=== PATIENT | female | born 1970 ===

== ENCOUNTER 2024-09-26 10:54 | Outpatient (AMB) | payer MEDICAID, SELFPAY ==
--- NOTE | 2024-09-26 11:15 | MHC.OFFVIS ---
Intake Visit Reasons: urinary incontinence Intake Note: New Patient presents for initial visit for urinary incontinence Urology Medications: none Blood Thinner: none PVR: 0ml's Manager Exchange Required: Yes Manager Exchange Name: [id number] Accompanied by: Unknown Allergies No Known Allergies Allergy (Verified 09/26/24 11:35) Medication List - Last Reconciled 09/26/24 by JOSHUA Weiner lisinopril 10 mg PO DAILY magnesium oxide 400 mg PO DAILY HPI Comments Details: Wendy is a very pleasant 53-year-old French-speaking female patient of Dr. Gregorio was accompanied by her stepdaughter Teressa at today's office visit. She has PMH of plantar fasciitis, and depression. She presents to the office today as a new patient for mixed urinary incontinence. In discussion with the patient and her stepdaughter who provides much of today's history as patient is vague throughout today's assessment she reports noting episodes of mixed urinary incontinence throughout the day. She reports utilizing approximately 2-4 Judi pads per day. She denies nocturia, hematuria, dysuria, foul smelling urine, changes to urinary stream, flank pain, fever, and or chills. We discussed at length potential causes of mixed urinary incontinence as well as further treatment options and risks and benefits of these treatment options. In office urinalysis results reviewed with the patient today. PVR 0 mL. She reports having trialed oxybutynin with her PCP and felt this was somewhat helpful however experienced dry mouth and constipation therefore she stopped taking the medication. We discussed obtaining imaging for further assessment evaluation as well as potential near future in office cystoscopy and or urodynamics if symptoms persist and/or worsen. [facility] Medical History Plantar fasciitis History of mammogram Positive QuantiFERON-TB Gold test Positive hepatitis C antibody test Major depressive disorder RUQ abdominal pain Review of Systems Const All systems reviewed & are unremarkable except as noted in HPI and below Physical Exam Const General: cooperative, healthy appearing, comfortable, no acute distress, well developed, alert and awake Orientation/consciousness: oriented to person HEENT Head: Yes normal to inspection, Yes normocephalic and Yes atraumatic Ears: hearing grossly normal bilaterally Eyes General: appearance normal, both eyes and all related structures Neck Neck: Yes normal visual inspection and Yes trachea midline Chest Chest palpation & inspection: normal inspection of the chest Resp Effort & Inspection: normal respiratory effort and able to speak in complete sentences Cardio Rate: regular rate GI Inspection: Yes normal to inspection General: Yes no CVA tenderness Back/Spine/Pelvis Back: no CVA tenderness Skin General skin exam: no rashes or lesions noted Neuro General: oriented to person Extrem General: Yes normal to inspection Psych Appearance: grossly normal and well kempt Mental Status: other Speech and movement: Normal speech and movement present, Clear speech present and Slowed speech present (Psych) Affect: normal affect Attitude: cooperative Insight: Limited insight present (Psych) Judgement: Limited judgement present (Psych) Office Procedures Post Void Residual Post Residual Void Post Void Residual (PVR): 0 [id number] Void Residual by ultrasound Results AMB Urinalysis, Automated UA Leukoctes 0 Ezequiel/uL Last Edit by [employer] on 09/26/24 11:28 UA Nitrite Last Edit by [employer] on 09/26/24 11:28 UA Urobilinogen 0.2 mg/dL Last Edit by [employer] on 09/26/24 11:28 UA Protein 15 mg/dL Last Edit by [employer] on 09/26/24 11:28 UA pH 6.0 Last Edit by [employer] on 09/26/24 11:28 UA Blood 10 Danny/uL Last Edit by [employer] on 09/26/24 11:28 UA Specific Morris 1.020 Last Edit by [employer] on 09/26/24 11:28 UA Ketone Last Edit by [employer] on 09/26/24 11:28 UA Bilirubin 0 mg/dL Last Edit by [employer] on 09/26/24 11:28 UA Glucose 0 mg/dL Last Edit by [employer] on 09/26/24 11:28 Results Reviewed Results Reviewed: Laboratory Last Values Urine pH (Auto) 6.0 09/26/24 11:27 Specific Morris (Auto) 1.020 09/26/24 11:27 Urine Protein (Auto) 15 mg/dL 09/26/24 11:27 Glucose (UA)(Auto) 0 mg/dL 09/26/24 11:27 Urine Blood (Auto) 10 Danny/uL 09/26/24 11:27 Urine Bilirubin (Auto) 0 mg/dL 09/26/24 11:27 Urine Urobilinogen (Auto) 0.2 mg/dL 09/26/24 11:27 Leukocyte Esterase (Auto) 0 Ezequiel/uL 09/26/24 11:27 Assessment & Plan Assessment & Plan (1) Urinary incontinence, mixed: Code(s): N39.46 - Mixed incontinence Category: Medical Plan In office urinalysis results reviewed with the patient today; as noted above. PVR 0 mL. We discussed at length potential causes of mixed urinary incontinence as well as further treatment options and risks and benefits of these treatment options. Start Myrbetriq as discussed and prescribed. Will obtain retroperitoneal ultrasound for further assessment evaluation. We discussed potential near future in office cystoscopy and or urodynamics if symptoms persist and/or worsen. We discussed importance of timed/scheduled voiding given question of memory impairment Follow-up in 1-3 months with PVR and imaging to be completed prior; or sooner with any issues, concerns, and or questions. Orders: Orders AMB Urinalysis Automated Today Z13.9 - Encounter for screening, unspecified AMB Post Void Residual by ultrasound Today N39.41 - Urge incontinence US retroperitoneal comp Today N39.46 - Mixed incontinence Medications: New mirabegron ER (Myrbetriq) 25 mg PO DAILY 30 days 30 tabs 3RF N30.10 - Interstitial cystitis (chronic) without hematuria, N32.81 - Overactive bladder, R35.1 - Nocturia, R39.15 - Urgency of urination Patient Instructions: The patient had an opportunity to ask questions regarding the treatment plan. All questions were answered. Physical exam, labs, and imaging were discussed and reviewed in detail. As well as risks, benefits, and discussion of treatment choices. No major barriers to understanding were identified. The patient expressed understanding and agreement with the above treatment plan. The patient was made aware they should contact our office by phone for worsening of their current condition, the appearance of new symptoms, or with any questions or concerns. Compliance is encouraged with any medications and follow up testing that is ordered. It is a privilege to be allowed the opportunity to participate in? your urological care.? Again, if you have any questions or concerns If you have any questions or concerns please do not hesitate to contact me. The office is [phone]. This note is constructed using voice recognition software. While every effort has been made to ensure accuracy produce laborer errors may have been included. Yours sincerely, LA NENA Weiner-MACKENZIE Coding Level of Care Code New Pt Level 4 (77065) Diagnoses Urinary incontinence, mixed N39.46 CPT Codes Post Residual Void - PVR CPT Code: 18815-Rjtv Void Residual by ultrasound ([id number])
--- OUTSIDE RECORDS SUMMARY | 2024-09-26 13:20 | XMS_ITS | Clinical Summary ---
Author Organization [facility] Address [address] [place] [address] Care Team Providers Care House Worker Name Role Phone Ashely Brown PA-C Primary Care Provider Source Comments PLEASE NOTE, if this patient is a minor, it may be UNLAWFUL to discuss sensitive information that is contained in these records (such as FAMILY PLANNING, MENTAL HEALTH or SUBSTANCE ABUSE) with the minor patient's parent or other person without the patient's specific authorization.[facility] Allergies No known active allergies Medications diclofenac sodium (VOLTAREN) 1 % gelIndications: Plantar fasciitis Apply topically 4 (four) times daily as needed for pain 100 g 2 01/19/20 23 Active naproxen (NAPROSYN) 500 mg tabletIndicatio ns:Plantar fasciitis Take 1 Tablet by mouth 2 (two) times daily with a meal 180 Tablet 01/19/20 23 Active alum-mag hydroxide-simet h (MAALOX MAX) 400-400-40 mg/5 mL suspensionIndic ations:Gastric reflux Take 5 mL by mouth every 6 (six) hours as needed for indigestion 100 mL 08/11/19 24 Active oxybutynin XL (DITROPAN-XL) 5 mg 24 hr tabletIndicatio ns:Urge incontinence of urine TAKE 1 TABLET BY MOUTH EVERY DAY 30 Tablet 1 06/13/20 24 Active magnesium oxide (MAG-OX) 400 mg (241.3 mg magnesium) tabletIndicatio ns:Cramps of lower extremity Take 1 Tablet by mouth once daily 90 Tablet 07/17/19 25 Active lisinopriL 10 mg tabletIndicatio ns:Primary hypertension TAKE 1 TABLET BY MOUTH EVERY DAY 90 Tablet 1 03/03/20 25 Active ibuprofen 600 mg tabletIndicatio ns:Plantar fasciitis TAKE 1 TABLET BY MOUTH THREE TIMES A DAY NEEDED FOR PAIN 30 Tablet 09/05/19 25 Active lisinopriL 10 mg tabletIndicatio ns:Primary hypertension Take 1 Tablet by mouth once daily 90 Tablet 1 04/15/20 24 025 Discontinued ibuprofen 600 mg tabletIndicatio ns:Plantar fasciitis Take 1 Tablet by mouth 3 (three) times daily as needed for pain 30 Tablet 07/17/19 25 025 Discontinued Active Problems Problem Noted Date Diagnosed Date Primary hypertension 04/15/2024 Plantar fasciitis 04/10/2023 H/O mammogram 03/02/2023 Overview (03/02/2023): 02/18/23 Mammo BIRDS 0 Positive QuantiFERON-TB Gold test 08/24/2018 Overview (07/10/2019): 10/28/18 - Seen by TB clinic. Neg CXR. Plan: T-spot, hepatic profile, F/U in TB clinic fr tx of latent TB if T-spot is positive. TSPOT result = borderline. 05/16/19 - TB clinic f/u. Will repeat T-SPOT, and if positive will recommend 4 mos rifampin. TSPOT = negative. No further intervention will be required. Positive hepatitis C antibody test 01/10/2018 Overview (03/24/2018): Viral load: 761,824. Fibrosure score F1-F2 minimal. Genotype: 1a 02/16/18 - seen by Dr. Brewster ID 03/04/18 - US liver: no acute findings. Mild coarsening of the hepatic echotexture with fatty infiltration and/or hepatocellular disease. NO hepatic mass. No biliary dilatation. 03/08/18 - Started Hep C Tx with Maryvet RUQ abdominal pain 01/04/2018 Overview (01/04/2018): 12/07/17 - seen at [facility] c/o RUQ pain. KUB: Contracted gallbladder. No evidence of acute cholecystitis.. Major depressive disorder, s devan episode, moderate ([facility]) 01/04/2018 Resolved Problems Problem Noted Date Diagnosed Date Resolved Date Persistent depressive disorder - Moderate 02/16/2018 09/28/2018 Elevated LFTs 12/20/2017 03/24/2018 Overview (12/20/2017): AST 63, ALT 71 on 12/07/17 per [facility] ER note Encounters Date Type Department Care Team Description 07/17/2024 8:20 AM EST Telemedicine Visit [address] [id number] Ashely Brown PA-C Primary hypertension (Primary Dx); Plantar fasciitis; Cramps of lower extremity; Overweight (BMI 25.0-29.9) from Last 3 Months Immunizations Immunization Administration Dates Next Due Flu, Preservative Free 08/11/2023,04/03/2021,05/2021 Moderna COVID-19 Vaccine, re d cap blue label, 12+ Primary Series 01/21/2022,11/05/2020,10/09/2020 PNEUMOCOCCAL POLYSACCHARIDE PPV23 03/24/2018 TDAP 03/24/2018 ZOSTER VACCINE, RECOMBINANT (SHINGRIX) Family History Medical History Relation Name Comments Heart attack Father Heart attack Mother Relation Name Status Comments Father Mother Social History Tobacco Use Types Packs/Day Years Used Date Smoking Tobacco: Never Smokeless Tobacco: Never Tobacco Cessation:Counseling Given: Not Answered Alcohol Use Standard Drinks/Week Comments No 0 (1 standard drink = 0.6 oz pur e alcohol) Social Connections Answer Date Recorded Connectedness 1 08/11/2023 Financial Resource Strain Answer Date R ecorded Financial Resource Strain 1 2023 Stress Answer Date Recorded Stress 2 08/11/2023 Physical Activity Answer Date Recorded Physical Activity 0 02/27/2019 Food Insecurity Answer Date Recorded Food 2 08/11/2023 Transportation Needs Answer Date Record ed Transportation 1 08/11/2023 Housing Stability Answer Date Recorded Housing 1 08/11/2023 Safety and Environment Answer Date Monty rded Safety 0 08/14/2020 Utilities Answer Date Recorded Utilities 1 08/11/2023 Employment Answer Date Recorded Stress 0 09/22/2021 Comments No Sex and Gender Information Value Date Recorded Sex Assigned at Female 11/15/2017 6:55 AM PDT Legal Sex Female 7:49 AM PDT Gender Identity Female 11/15/2017 6:55 AM PDT Sexual Orientation Straight 03/24/2018 6: 18 AM PDT Last Filed Vital Signs Vital Sign Reading Time Taken Comments Blood Pressure 165/95 04/15/2024 10:08 AM EDT Pulse 79 04/15/2024 10:08 AM EDT Temperature 36.8 ??C (98.3 ??F) 04/15/2024 1 0:08 AM EDT Respiratory Rate 16 04/15/2024 10:0 8 AM EDT Oxygen Saturation 98% 08/11/2023 1:12 PM EST Inhaled Oxygen Concentration - - Weight 65.2 kg (143 lb 12.8 oz) 08/11/2023 1:12 PM EST Height 149.9 cm (4' 11 ) 08/11/2023 1:12 PM EST Body Mass Index 29.04 08/11/2023 1:12 PM EST Plan of Treatment Health Maintenance Due Date Last Done Comments HPV Screening 1968 CT Colonography 2013 Colonoscopy 2013 Colorectal Cancer Screening 2013 FIT/gFOBT 2013 Fecal DNA 2013 Flexible Sigmoidoscopy 2013 Pap Smear 08/20/2023 08/20/2020 Dpi-TSAEI-31 ( season) 2024 01/21/2022, 11/05/2020, 10/09/2020 Imm-Influenza (#1) 2024 08/11/2023, 0 04/03/2021, 08/15/2020, Additional history exists Alcohol and Drug Screen 07/05/2024 08/11/19 24, 01/18/2023, 01/21/2022, Additional history exists Annual Preventive Care Visit 08/11/2024 08/11/2023, 01/21/2022, 10/02/2020, Additional history exists Breast Cancer Screening (Mammogram) 10/18/2024 02/23/2023, 02/18/2023, 08/01/2021, Additional history exists Postponed from 02/24/2024 (Follow up visit) Depression Monitoring 10/24/2024 08/11/2023 , 01/18/2023, 01/21/2022, Additional history exists Postponed from 11/09/2023 (Follow up visit) Tobacco Screening 07/17/2025 07/17/2024, 01/09/2020 Cervical Cancer Screening 08/20/2025 Pap + HPV 08/20/2025 08/20/2020 Diabetes Screening 07/17/2027 07/17/2024, 0 07/17/2024, 01/21/2022, Additional history exists Lipid Screening 07/17/2027 07/17/2024, 01/03, 04/03/2021, Additional history exists Imm-DTaP/Tdap/Td (2 - Td or Tdap) 03/24/2028 03/24/2018 HIV Screening Completed 01/10/2018 Imm-Zoster, Recombinant Completed 03/07/20, 12/03/2021, 04/03/2021 Hepatitis C Screening Completed 08/11/2023 , 08/11/2023, 01/14/2018, Additional history exists Cervical Ablation/Cold-Knife Conization Discontinued Cervical Cryotherapy Discontinued Colposcopy Discontinued Endometrial Biopsy Discontinued Excision/Leep Discontinued HPV Genotyping Discontinued Imm-Hepatitis B Discontinued Vaginal Pap Discontinued Vulvoscopy Discontinued Procedures Procedure Name Priority Date/Time Associated Diagnosis Comments ASSAY OF MAGNESIUM Routine 07/17/2024 9: 21 AM EST Cramps of lower extremity LIPIDS W RFLX TO DIRECT LDL Routine 07/17/2024 9:21 AM EST Primary hypertension Overweight (BMI 25.0-29.9) HGA1C W/EAG Routine 07/17/2024 9:21 AM EST Cramps of lower extremity BLOOD COUNT COMPLETE AUTO&AUTO DIFRNTL WBC Routine 07/17/2024 9:21 AM EST Primary hypertension COMPREHENSIVE METABOLIC PANEL Routine 07/17/2024 9:21 AM EST Primary hypertension Cramps of lower extremity HEPATITIS C AB W/RFLX HCV RNA, QT, RT PCR Routine 08/11/2023 2:25 PM EST Annual physical exam HISTORIC MAMMOGRAM 02/23/2023 3: 00 AM EDT PAP LIQ BASED, HPV W/ RFX HPV 16/18 Routine 08/20/2020 1:46 PM EST Pap smear for cervical cancer screening ANTIBODY HIV-1&HIV-2 SINGLE RESULT Routine 01/10/2018 8:49 AM EDT Routine lab draw from Last 3 Months or Most Recently Relevant to Health Maintenance Results * HGA1C W/EAG (07/17/2024 9:21 AM EST) HEMOGLOBIN A1C 5.1 <5.7 % of total Hgb [facility] Comment: For the purpose of screening for the presence of diabetes: <5.7% ? Consistent with the absence of diabetes 5.7-6.4% ?Consistent with increased risk for diabetes ?(prediabetes) > or =6.5% ??Consistent with diabetes This assay result is consistent with a decreased risk of diabetes. Currently, no consensus exists regarding use of hemoglobin A1c for diagnosis of diabetes in children. According to [place] Diabetes Association (ADA) guidelines, hemoglobin A1c <7.0% represents optimal control in non- diabetic patients. Different metrics may apply to specific patient populations. Standards of Medical Care in Diabetes(ADA). ?? EAG (MG/DL) 100 mg/dL [facility] EAG (MMOL/L) 5.5 mmol/L [facility] Blood Blood / Unknown 07/17/2024 9 :21 AM EST 07/17/2024 9:22 AM EST us Ashely Brown PA-C LAB - BLOOD DRAW Edited Resu lt - Final [facility] [address] [place] [id number], [facility] [address] [place] [phone] * (ABNORMAL) LIPIDS W RFLX TO DIRECT LDL (07/17/2024 9:21 AM EST) Pathologist [facility] CHOLESTEROL, TOTAL 214(H) <200 mg/dL [facility] HDL CHOLESTEROL 62 > OR = 50 mg/dL [facility] TRIGLYCERIDES 72 <150 mg/dL [facility] LDL-CHOLESTEROL 136(H) 99 mg/dL (calc) [facility] Comment: Reference range: <100 Desirable range <100 mg/dL for primary prevention; ?? <70 mg/dL for patients with CHD or diabetic patients with > or = 2 CHD risk factors. LDL-C is now calculated using the Gustavo calculation, which is a validated novel method providing better accuracy than the Friedewald equation in the estimation of LDL-C. Raimundo SS et al. ODILIA. 2013;310(19): 8545-0090 (http://education.TaskRabbit/faq/YQE659) CHOL/HDLC RATIO 3.5 <5.0 (calc) [facility] NON-HDL CHOLESTEROL 152(H) <130 mg/dL (calc) [facility] Comment: For patients with diabetes plus 1 major ASCVD risk factor, treating to a non-HDL-C goal of <100 mg/dL (LDL-C of <70 mg/dL) is considered a therapeutic option. Blood Blood / Unknown 07/17/2024 9 :21 AM EST 07/17/2024 9:22 AM EST Ashely Brown PA-C LAB - BLOOD DRAW Final Resul t [facility] [address] [address], [facility] [address] [address] * BLOOD COUNT COMPLETE AUTO&AUTO DIFRNTL WBC (07/17/2024 9:21 AM EST) [facility] WHITE BLOOD CELL COUNT 5.8 3.8 - 10.8 Thousand/ uL [facility] RED BLOOD CELL COUNT 4.23 3.80 - 5.10 Million/u L [facility] HEMOGLOBIN 13.3 11.7 - 15.5 g/dL [facility] HEMATOCRIT 39.0 35.0 - 45.0 % [facility] MCV 92.2 80.0 - 100.0 fL [facility] MCH 31.4 27.0 - 33.0 pg [facility] MCHC 34.1 32.0 - 36.0 g/dL [facility] Comment: For adults, a slight decrease in the calculated MCHC value (in the range of 30 to 32 g/dL) is most likely not clinically significant; however, it should be interpreted with caution in correlation with other red cell parameters and the patient's clinical condition. RDW 11.9 11.0 - 15.0 % [facility] PLATELET COUNT 240 140 - 400 Thousand/ uL [facility] MPV 12.3 7.5 - 12.5 fL [facility] ABSOLUTE NEUTROPHILS 3,358 1,500 - 7,800 cells/uL [facility] ABSOLUTE LYMPHOCYTES 1,873 850 - 3,900 cells/uL [facility] ABSOLUTE MONOCYTES 510 200 - 950 cells/uL [facility] ABSOLUTE EOSINOPHILS 41 15 - 500 cells/uL [facility] ABSOLUTE BASOPHILS 17 0 - 200 cells/uL [facility] NEUTROPHILS PCT 57.9 % [email or web address] LYMPHOCYTES 32.3 % [facility] MONOCYTES 8.8 % [facility] EOSINOPHILS 0.7 % [facility] BASOPHILS 0.3 % [facility] Blood Blood / Unknown 07/17/2024 9 :21 AM EST 07/17/2024 9:22 AM EST Ashely Brown PA-C LAB - BLOOD DRAW Edited Resu lt - Final [facility] [address] [place] [id number], [facility] [address] [address] * ASSAY OF MAGNESIUM (07/17/2024 9:21 AM EST) MAGNESIUM 2.4 1.5 - 2.5 mg/dL [facility] Blood Blood / Unknown 07/17/2024 9 :21 AM EST 07/17/2024 9:22 AM EST Ashely Brown PA-C LAB - BLOOD DRAW Final Resul t Performing Organization Address City/State/[facility] Co de Phone Number [facility] [address] [address], [facility] [address] [place] [address] * COMPREHENSIVE METABOLIC PANEL (07/17/2024 9:21 AM EST) GLUCOSE 78 65 - 99 mg/dL [facility] Comment: ?Fasting reference interval UREA NITROGEN (BUN) 14 7 - 25 mg/dL [facility] CREATININE (blood) 0.61 0.50 - 1.03 mg/dL [facility] EGFR 106 > OR = 60 mL/min/1. 73m2 [facility] BUN/CREATININE RATIO SEE NOTE: [facility] Comment: ?? Not Reported: BUN and Creatinine are within ?? reference range. ? SODIUM 141 135 - 146 mmol/L [facility] POTASSIUM 4.2 3.5 - 5.3 mmol/L [facility] CHLORIDE 106 98 - 110 mmol/L [facility] CARBON DIOXIDE 28 20 - 32 mmol/L [facility] [place] [facility] CALCIUM 9.3 8.6 - 10.4 mg/dL [facility] PROTEIN, TOTAL 7.0 6.1 - 8.1 g/dL [facility] [place] [facility] ALBUMIN 4.2 3.6 - 5.1 g/dL [facility] GLOBULIN 2.8 1.9 - 3.7 g/dL (calc) [facility] ALBUMIN/GLOBULI N RATIO 1.5 1.0 - 2.5 (calc) [facility] BILIRUBIN, TOTAL 0.3 0.2 - 1.2 mg/dL [facility] ALKALINE PHOSPHATASE 90 37 - 153 U/L [facility] AST 18 10 - 35 U/L [facility] ALT 9 6 - 29 U/L [facility] Blood Blood / Unknown 07/17/2024 9 :21 AM EST 07/17/2024 9:22 AM EST Ashely Brown PA-C LAB - BLOOD DRAW Final Resul t Performing Organization Address City/State/[facility] Co de Phone Number [facility] [address] [address], [facility] [address] [phone] * (ABNORMAL) HEPATITIS C AB W/RFLX HCV RNA, QT, RT PCR (08/11/2023 2:25 PM EST) HEPATITIS C ANTIBODY REACTIVE( A) NON-REACT PANTERA [facility] Comment: Based on this result, the sample will be tested for HCV RNA by a Nucleic Acid Amplification Test (NAAT) to determine if the patient has a current active infection. Blood Blood / Unknown 08/11/2023 2 :25 PM EST 08/11/2023 2:27 PM EST Narrative [employer] - 08/16/2023 3:25 PM EST DIFFICULT DRAW. PATIENT ADVISED TO RETURN FOR COLLECTION. Ashely Brown PA-C LAB - BLOOD DRAW Edited Resu lt - Final Performing Organization Address [facility] de Phone Number [facility] [address] [address], [facility] [address] [address] * HISTORIC MAMMOGRAM (02/23/2023 3:00 AM EDT) 02/23/2023 3:00 AM EDT Tahira Allen PA-C IMG MAMMO Final Result * PAP LIQ BASED, HPV W/ RFX HPV 16/18 (08/20/2020 1:46 PM EST) CYTOLOGY Cervix uteri structure / Unknown 08/20/2020 1:46 PM EST [facility] - 08/26/2020 2:38 PM EST NEGATIVE FOR SQUAMOUS INTRAEPITHELIAL LESION AND MALIGNANCY Result of aptima high risk HPV assay: High risk HPV:Negative Ashely Brown PA-C LAB - NO BLOOD DRAW Final Re sult Performing Organization Address [facility] Co de Phone Number [facility] [address] [place] [address], [place] [phone] * HIV-1 & HIV-2 ANTIBODIES (01/10/2018 8:49 AM EDT) HIV 1 AND 2 ANTIBODY SCREEN NEGATIVE NEGATIVE [facility] Comment: This assay is a 4th generation assay allowing for earlier detection of HIV infection by detecting the presence of the HIV-1 p24 antigen as well as the traditional antibodies to HIV type 1 (including group O) and type 2. ??Use of a 4th generation assay is the current CDC recommendation for HIV screening. Blood specimen (specimen) Blood / Unknown 01/10/2018 8:49 AM EDT 01/10/2018 9:04 AM EDT [facility] - 01/10/2018 2:11 PM EDT [facility] [address] [place] [address] PT ID [id number] ORD# [id number] Kalyani Flores PA-C LAB - BLOOD DRAW Final Re sult [facility] [address] [place] [address], [place] [phone] from Last 3 Months or Most Recently Relevant to Health Maintenance Insurance [facility] [employer] Care Teams House Worker Relationship Specialty Start Date End Date Ashely Brown PA-C [address] [place] [phone] PCP - General Internal Medicine 06/13/20
--- OUTSIDE RECORDS SUMMARY | 2024-09-26 13:20 | XMS_ITS | Clinical Summary ---
Author Organization [facility] Address [address] [place] [address] Phone Care Team Providers Care Fashion Model Name Role Phone Ashely Brown Primary Care Provider Social History Tobacco Use Types Packs/Day Years Used Date Smoking Tobacco: Never Assessed Comments Unknown Sex and Gender Information Value Date Recorded Sex Assigned at Not on file Legal Sex Female 9:06 AM EST Gender Identity Not on file Sexual Orientation Not on file Plan of Treatment Upcoming Encounters Date Type Department Care Team (Late st Contact Info) Description 09/27/2024 10:00 AM EDT Office Visit Orthopedic Surgery [facility] [address] [phone] Shiraz Hunt, DPM [address] [address] Health Maintenance Due Date Last Done Comments DTaP,Tdap,and Td Vaccines (1 - Tdap) 10/22/1987 Hepatitis B Vaccines (1 of 3 - 19+ 3-dose series) 10/22/1987 Cervical Cancer Screening: P ap Smear 1989 Pneumococcal Vaccine: 50+ Years (1 of 1 - PCV) 2018 Zoster Vaccines (1 of 2) 2018 Colorectal Cancer Screening: Colonoscopy 06/07/2022 Depression Screening 06/07/2022 HIV Screening 06/07/2022 Hepatitis C Screening 06/07/2022 Social Influencers of Health Screening 06/07/2022 COVID-19 Vaccine ( - 2023-2 5 season) 2024 Influenza Vaccine (#1) 2024 Breast Cancer Screening 02/18/2025 02/19/20 23, 07/25/2021, 07/10/2020 HIB Vaccines Aged Out No longer eligi ble based on patient's age to complete this topic HPV Vaccines Aged Out No longer eligi ble based on patient's age to complete this topic Hepatitis A Vaccines Aged Out No long er eligible based on patient's age to complete this topic IPV Vaccines Aged Out No longer eligi ble based on patient's age to complete this topic MMR Vaccines Aged Out No longer eligi ble based on patient's age to complete this topic Meningococcal ACWY Vaccine Aged Out N o longer eligible based on patient's age to complete this topic Meningococcal B Vacine Aged Out No lo nger eligible based on patient's age to complete this topic Pneumococcal Vaccine: Pediatrics (0 to 5 Years) and At-Risk Patients (6 to 64 Years) Aged Out No longer eligible b ased on patient's age to complete this topic RSV Immunization Patients Under 20 months Aged Out No longer eligible b ased on patient's age to complete this topic Varicella Vaccines Aged Out No longer eligible based on patient's age to complete this topic Procedures Procedure Name Priority Date/Time Associated Diagnosis Comments [facility] SCREENING DIGITAL Routine 02/18/2023 10:07 AM EDT Encounter for screening mammogram for malignant neoplasm of breast from Last 3 Months or Most Recently Relevant to Health Maintenance Results * [facility] SCREENING DIGITAL (02/18/2023 10:07 AM EDT) Anatomical Region Laterality Modality Mammography 02/18/2023 8:48 AM EDT Narrative 02/18/2023 10:07 AM EDT [facility] Diagnostic Imaging Department [address] [place], [place] [id number] Patient: ??LEATHA SEO ?/Age/Sex: 1970 - 52 - F Unit#: ??[id number] ? Location/Status: ??SPDIMAM/REG CLI ? Mnemonic/Ordering Site: ??DIGSC/SPMAM Ordering Physician: ??JENARO ARREAGA CATHODIC PROTECTION TECHNICIAN Jonah Screening Digital - 02/18/23 - 933 Report Status:Signed EXAM: [facility] Screening Digital EXAM DATE AND TIME: 02/18/2023 9:35 AM HISTORY: ??Routine screening mammogram COMPARISON: ??07/25/2021, 08/01/2021, 07/10/2020 TECHNIQUE: Bilateral digital breast tomosynthesis was performed in the CC and MLO projections. Computer aided detection with [employer] 3D 3.1 was employed. TISSUE DENSITY: b. There are scattered areas of fibroglandular density. FINDINGS: There is a partially obscured, approximately 8 mm nodule identified superiorly on the right seen best on the medial lateral oblique view. ??It is probably lateral against the chest wall on the craniocaudad view. ??This appears to be almost 12 cm deep to the nipple. ??The patient will need to come back to the department for further spot compression views, as well as an exaggerated craniocaudad view laterally. ??If persistent ultrasound would be necessary. ??The left breast is unremarkable. IMPRESSION: 1. ??Inconclusive finding of a partially obscured, developing nodule on the right superiorly and probably laterally deep along the chest wall 12 cm posterior to the nipple. BI-RADS: ??Class 0: Inconclusive evaluation for developing nodule. RECOMMENDATION(S): 1: Further evaluation with spot compression views as well as right breast ultrasound as described above is advised. Dictating Physician: ??ARTURO JASSO MD Electronically Signed by: ??ARTURO JASSO MD Dic Date/Time: ??02/18/23 1000 Sign date/Time: ??02/18/23 1007 Procedure Note Arturo Jasso MD - 08/10/2023 [facility] Diagnostic Imaging Department [address] [place] [id number] Patient: SEOLEATHA /Age/Sex: 1970 - 52 - F Unit#: [id number] Location/Status: [facility]/REG CLI Mnemonic/Ordering Site: [facility] Ordering Physician: JENARO ARREAGA NP [facility] Screening Digital - 02/18/23 - 0934 Report Status:Signed EXAM: [facility] Screening Digital EXAM DATE AND TIME: 02/18/2023 9:35 AM HISTORY: Routine screening mammogram COMPARISON: 07/25/2021, 08/01/2021, 07/10/2020 TECHNIQUE: Bilateral digital breast tomosynthesis was performed in the CCand MLO projections. Computer aided detection with [employer] 3D 3.1was employed. TISSUE DENSITY: b. There are scattered areas of fibroglandular density. FINDINGS: There is a partially obscured, approximately 8 mm nodule identifiedsuperiorly on the right seen best on the medial lateral oblique view. It isprobably lateral against the chest wall on the craniocaudad view. This appears nishant almost 12 cm deep to the nipple. The patient will need to come back tothe department for further spot compression views, as well as an exaggerated craniocaudad view laterally. If persistent ultrasound would be necessary.The left breast is unremarkable. IMPRESSION: 1. Inconclusive finding of a partially obscured, developing nodule onthe right superiorly and probably laterally deep along the chest wall 12 cm posterior to the nipple. BI-RADS: Class 0: Inconclusive evaluation for developing nodule. RECOMMENDATION(S): 1: Further evaluation with spot compression views as well as rightbreast ultrasound as described above is advised. Dictating Physician: ARTURO JASSO MD Electronically Signed by: ARTURO JASSO MD Dic Date/Time: 02/18/23 1000 Sign date/Time: 02/18/23 1007 Silvina Arreaga AUTOMOTIVE SERVICE DIRECTOR IMG BI PROCEDURES Final Re sult from Last 3 Months or Most Recently Relevant to Health Maintenance Insurance Care Teams Fashion Model Relationship Specialty Start Date End Date Ashely Brown PA [facility] [place] [address] PCP - General 07/19/24
== END 2024-09-26 11:54 | disposition home or self-care (01) ==
LOC: HO.HUSH 10:55
PROVIDERS: PCP Physician Assistant; Visit Provider Nurse Practitioner Family
DX: N39.46 Mixed incontinence (principal); Z13.9 Encounter for screening, unspecified
CPT/HCPCS: 99204

== ENCOUNTER → 2024-09-26 10:54 | Outpatient (BNVA) | payer MEDICAID, SELFPAY | PROVIDERS: PCP Physician Assistant; Visit Provider Nurse Practitioner Family | DX: N39.46 Mixed incontinence (principal); N30.10 Interstitial cystitis (chronic) without hematuria; N32.81 Overactive bladder; R35.1 Nocturia | CPT/HCPCS: 51798; 81003; 99212 ==

== ENCOUNTER 2024-12-06 10:09 | Outpatient (REF) | payer MEDICAID, SELFPAY ==
--- OUTSIDE RECORDS SUMMARY | 2024-12-06 10:48 | XMS_ITS | Clinical Summary ---
Author Organization [facility] Address [address] [place] [address] Phone Care Team Providers Care French Instructor Name Role Phone Ashely Brown Primary Care [...] Care Team (Late st Contact Info) Description 12/14/2024 9:15 AM EDT Office Visit Orthopedic Surgery [facility] [address] [phone] Shiraz Hunt, DPM [address] [address] Health Maintenance Due Date Last Done Comments [...] Vaccine ( - 2023-2 5 season) 2024 Breast Cancer Screening 02/18/2025 02/19/20 23, 07/25/2021, 07/10/2020 Influenza Vaccine (Season Ended) 2025 HIB Vaccines Aged Out No longer eligi [...] age to complete this topic Meningococcal B Vaccine Aged Out No l onger eligible based on patient's age to complete [...] Procedure Name Priority Date/Time Associated Diagnosis Comments [facility] SCREENING DIGITAL Routine 02/18/2023 10:07 AM EDT Encounter for screening mammogram for malignant neoplasm of breast from Last 3 Months or Most Recently Relevant to Health Maintenance Results * [facility] SCREENING DIGITAL (02/18/2023 10:07 AM EDT) Anatomical Region Laterality Modality Mammography 02/18/2023 8:48 AM EDT Narrative 02/18/2023 10:07 AM EDT [facility] Diagnostic Imaging Department [address] [place] [phone] Patient: ??LEATHA SEO ?/Age/Sex: 1970 - 52 - F Unit#: ??[id number] ? Location/Status: ??SPDIMAM/REG CLI ? Mnemonic/Ordering Site: ??DIGSC/SPMAM Ordering Physician: ??JENARO ARREAGA LABOR RELATIONS OFFICER Jonah Screening Digital - 02/18/23 - 933 Report Status:Signed EXAM: [facility] Screening Digital EXAM DATE AND TIME: 02/18/2023 9:35 AM HISTORY: ??Routine screening mammogram COMPARISON: ??07/25/2021, 08/01/2021, 07/10/2020 TECHNIQUE: Bilateral digital breast tomosynthesis was performed in the CC and MLO projections. Computer aided detection with [employer] 3D 3.1 was employed. TISSUE DENSITY: b. [...] Procedure Note Arturo Jasso MD - 08/10/2023 [facility] Diagnostic Imaging Department [address] [place] [id number] Patient: SEOLEATHA /Age/Sex: 1970 - 52 - F Unit#: [id number] Location/Status: [facility] CLI Mnemonic/Ordering Site: [facility] Ordering Physician: JENARO ARREAGA NP [facility] Screening Digital - 02/18/23 - 34 Report Status:Signed EXAM: [facility] Screening Digital EXAM DATE AND TIME: 02/18/2023 9:35 AM HISTORY: Routine screening mammogram COMPARISON: 07/25/2021, 08/01/2021, 07/10/2020 TECHNIQUE: Bilateral digital breast tomosynthesis was performed in the CCand MLO projections. Computer aided detection with [employer] 3D 3.1was employed. TISSUE DENSITY: b. There [...] Physician: ARTURO JASSO MD Electronically Signed by: ATRURO JASSO MD Dic Date/Time: 02/18/23 1000 Sign date/Time: 02/18/23 1007 Silvina Arreaga THREAD MILLING MACHINE SET UP OPERATOR IMG BI PROCEDURES Final Re sult from Last 3 Months or Most Recently Relevant to Health Maintenance Insurance Care Teams French Instructor Relationship Specialty Start Date End Date Ashely Brown PA [facility] [place] [address] PCP - General 07/19/24
== END 2024-12-06 10:10 | disposition home or self-care (01) ==
LOC: HO.US 10:09
PROVIDERS: PCP Physician Assistant; Visit Provider Nurse Practitioner Family
DX: Z13.89 Encounter for screening for other disorder (principal)

== ENCOUNTER 2024-12-18 10:16 | Outpatient (REF) | payer MEDICAID, SELFPAY ==
--- NOTE | ~2024-12-18 | US_ITS ---
EXAMINATION: US RETROPERITONEAL COMPLETE (RENAL) CLINICAL INFORMATION: Mixed incontinence.. COMPARISON: None available. TECHNIQUE: Real-time imaging of the kidneys and bladder. FINDINGS: RIGHT KIDNEY: 10 x 4 x 5 cm (SAG x AP x TRV). Normal echotexture. Normal renal cortical thickness. No hydronephrosis. No gross solid or cystic lesion. LEFT KIDNEY: 9 x 5 x 4 cm (SAG x AP x TRV). Normal normal echotexture. Normal renal cortical thickness. No hydronephrosis. No gross solid or cystic lesion. BLADDER: Fluid-filled. Bilateral ureteral jets are demonstrated. Prevoid bladder volume is 147 mL. Postvoid bladder volume is 7 mL. US/US retroperitoneal comp IMPRESSION: 7 cc/minimal residual urine, post void image. No hydronephrosis.. Electronically signed by: Rosendo Hector MD 12/18/2024 11:13 AM EDT
== END 2024-12-18 10:17 | disposition home or self-care (01) ==
LOC: HO.US 10:16
PROVIDERS: PCP Physician Assistant; Visit Provider Nurse Practitioner Family
DX: N39.46 Mixed incontinence (principal)
CPT/HCPCS: 76770

== ENCOUNTER → 2024-12-18 10:20 | Outpatient (BNV) | payer MEDICAID, SELFPAY | PROVIDERS: PCP Physician Assistant; Visit Provider Radiology Diagnostic Radiology | DX: N39.46 Mixed incontinence (principal) | CPT/HCPCS: 76770 ==

== ENCOUNTER 2024-12-27 11:39 | Outpatient (REF) | payer MEDICAID, SELFPAY ==
[2024-12-27 16:31] LABS: Urine Cytology See Pathology rpt
== END 2024-12-27 11:40 | disposition home or self-care (01) ==
LOC: HO.LNP 11:39
PROVIDERS: PCP Physician Assistant; Visit Provider Nurse Practitioner Family
DX: R31.29 Other microscopic hematuria (principal); N39.46 Mixed incontinence
CPT/HCPCS: 51798; 81003; 88112; 99212

== ENCOUNTER 2024-12-27 11:39 | Outpatient (AMB) | payer MEDICAID, SELFPAY ==
--- NOTE | 2024-12-27 11:40 | A.OFFVIS_ITS ---
Intake Visit Reasons: 3m/US(set) Intake Note: New Patient presents for initial visit for urinary incontinence Urology Medications: none Blood Thinner: none PVR: 73ml's Heavy Antiarmor Weapons Infantryman Required: Yes Heavy Antiarmor Weapons Infantryman Name: Ricardo [id number] Accompanied by: Daughter Allergies No Known Allergies Allergy (Verified 12/27/24 21:58) Medication List - Last Reconciled 12/27/24 by JOSHUA Weiner lisinopril 10 mg PO DAILY mirabegron ER (Myrbetriq) 25 mg PO DAILY 30 days HPI Comments Details: Leatha is a very pleasant 54-year-old Frisian-speaking female patient of Dr. Gregorio was accompanied by her stepdaughter Teressa at today's office visit. She has PMH of plantar fasciitis and depression. She presents to the office today for follow-up. Of note, patient was seen approximately 3 months ago for mixed urinary incontinence at which time a retroperitoneal ultrasound was ordered for further assessment evaluation and started on Myrbetriq 25 mg daily. In discussion with the patient today she reports significant improvement in lower urinary tract symptoms she had been experiencing. She discusses how helpful she feels Myrbetriq has been. Recent retroperitoneal ultrasound results were reviewed 12/27 bilateral kidneys are normal in echotexture. No hydronephrosis or renal calculi noted bilaterally. The bladder is fluid-filled. She reports utilizing less Judi pads. She denies nocturia, hematuria, dysuria, foul smelling urine, changes to urinary stream, flank pain, fever, and or chills. We discussed at length potential causes of mixed urinary incontinence as well as further treatment options and risks and benefits of these treatment options. However, she does feel Myrbetriq has been helpful and wishes to continue. In office urinalysis results reviewed with the patient today. PVR 73mL. She reports having trialed oxybutynin with her PCP and felt this was somewhat helpful however experienced dry mouth and constipation therefore she stopped taking the medication. PFSH Medical History Plantar fasciitis History of mammogram Positive QuantiFERON-TB Gold test Positive hepatitis C antibody test Major depressive disorder RUQ abdominal pain Review of Systems Const All systems reviewed & are unremarkable except as noted in HPI and below Physical Exam Const General: cooperative, healthy appearing, comfortable, no acute distress, well developed, alert and awake Orientation/consciousness: oriented to person Limitations: language barrier HEENT Head: Yes normal to inspection, Yes normocephalic and Yes atraumatic Ears: hearing grossly normal bilaterally Eyes General: appearance normal, both eyes and all related structures Neck Neck: Yes normal visual inspection and Yes trachea midline Chest Chest palpation & inspection: normal inspection of the chest Resp Effort & Inspection: normal respiratory effort and able to speak in complete sentences Cardio Rate: regular rate GI Inspection: Yes normal to inspection General: Yes no CVA tenderness Back/Spine/Pelvis Back: no CVA tenderness Skin General skin exam: no rashes or lesions noted Neuro General: oriented to person Extrem General: Yes normal to inspection Psych Appearance: grossly normal and well kempt Mental Status: other Speech and movement: Normal speech and movement present, Clear speech present and Slowed speech present (Psych) Affect: normal affect Attitude: cooperative Insight: Limited insight present (Psych) Judgement: Limited judgement present (Psych) Office Procedures Post Void Residual Post Residual Void Post Void Residual (PVR): 73 [id number] Void Residual by ultrasound Results AMB Urinalysis, Automated UA Leukoctes 0 Ezequiel/uL Last Edit by MONICA Fuentes on 12/27/24 12:13 UA Nitrite Last Edit by MONICA Fuentes on 12/27/24 12:13 UA Urobilinogen 0.2 mg/dL Last Edit by Maddie Thurston CCM on 12/27/24 12:1 3 UA Protein 15 mg/dL Last Edit by MONICA Fuentes on 12/27/24 12:13 UA pH 5.5 Last Edit by MONICA Fuentes on 12/27/24 12:13 UA Blood 10 Danny/uL Last Edit by MONICA Fuentes on 12/27/24 12:13 UA Specific [place] 1.025 Last Edit by Maddie Thurston CCM on 12/27/24 12: 13 UA Ketone Last Edit by [facility] Thurston, [facility] on 12/27/24 12:13 UA Bilirubin 1 mg/dL Last Edit by Maddie Thurston [facility] on 12/27/24 12:13 UA Glucose 0 mg/dL Last Edit by Maddie Heathervidhi [facility] on 12/27/24 12:13 Results Reviewed Results Reviewed: Laboratory Last Values Urine pH (Auto) 5.5 12/27/24 12:12 Specific [place] (Auto) 1.025 12/27/24 12:12 Urine Protein (Auto) 15 mg/dL 12/27/24 12:12 Glucose (UA)(Auto) 0 mg/dL 12/27/24 12:12 Urine Blood (Auto) 10 Danny/uL 12/27/24 12:12 Urine Bilirubin (Auto) 1 mg/dL 12/27/24 12:12 Urine Urobilinogen (Auto) 0.2 mg/dL 12/27/24 12:12 Leukocyte Esterase (Auto) 0 Ezequiel/uL 12/27/24 12:12 Date of Service: 12/18/24 Procedure(s): US retroperitoneal comp EXAMINATION: US RETROPERITONEAL COMPLETE (RENAL) CLINICAL INFORMATION: Mixed incontinence.. COMPARISON: None available. TECHNIQUE: Real-time imaging of the kidneys and bladder. FINDINGS: RIGHT KIDNEY: 10 x 4 x 5 cm (SAG x AP x TRV). Normal echotexture. Normal renal cortical thickness. No hydronephrosis. No gross solid or cystic lesion. LEFT KIDNEY: 9 x 5 x 4 cm (SAG x AP x TRV). Normal normal echotexture. Normal renal cortical thickness. No hydronephrosis. No gross solid or cystic lesion. BLADDER: Fluid-filled. Bilateral ureteral jets are demonstrated. Prevoid bladder volume is 147 mL. Postvoid bladder volume is 7 mL. IMPRESSION: 7 cc/minimal residual urine, post void image. No hydronephrosis.. Assessment & Plan Assessment & Plan (1) Urinary incontinence, mixed: Code(s): N39.46 - Mixed incontinence Category: Medical Plan In office urinalysis results with the patient today; as noted above. PVR 73 mL. Recent retroperitoneal ultrasound results reviewed with the patient today; as noted above. Will continue Myrbetriq; refill provided We did discussed potential causes of mixed urinary incontinence as well as further treatment options and risks and benefits of these treatment options. All questions were answered. Follow-up in 6 months with PVR; or sooner with any issues, concerns, and or questions. Orders: Orders AMB Urinalysis Automated Today Z13.9 - Encounter for screening, unspecified AMB Post Void Residual by ultrasound Today N39.46 - Mixed incontinence Urine Cytology Today R31.29 - Other microscopic hematuria Medications: Changed From mirabegron ER (Myrbetriq) 25 mg PO DAILY 30 days 30 tabs 3RF N30.10 - Interstitial cystitis (chronic) without hematuria, N32.81 - Overactive bladder, R35.1 - Nocturia, R39.15 - Urgency of urination To mirabegron ER (Myrbetriq) 25 mg PO DAILY 90 tabs 3RF 90 days N30.10 - Interstitial cystitis (chronic) without hematuria, N32.81 - Overactive bladder, R35.1 - Nocturia, R39.15 - Urgency of urination Patient Instructions: The patient had an opportunity to ask questions regarding the treatment plan. All questions were answered. Physical exam, labs, and imaging were discussed and reviewed in detail. As well as risks, benefits, and discussion of treatment choices. No major barriers to understanding were identified. The patient expressed understanding and agreement with the above treatment plan. The patient was made aware they should contact our office by phone for worsening of their current condition, the appearance of new symptoms, or with any quest ions or concerns. Compliance is encouraged with any medications and follow up testing that is ordered. It is a privilege to be allowed the opportunity to participate in? your urological care.? Again, if you have any questions or concerns If you have any questions or concerns please do not hesitate to contact me. The office is [phone]. This note is constructed using voice recognition software. While every effort has been made to ensure accuracy optical instrument assembly supervisor errors may have been included. Yours sincerely, JOSHUA Weiner Coding Level of Care Code Est Pt Level 3 (94448) Complex EM visit Add On G2211 Diagnoses Urinary incontinence, mixed N39.46 CPT Codes Post Residual Void - PVR CPT Code: 57392-Nxqa Void Residual by ultrasound ([id number])
--- OUTSIDE RECORDS SUMMARY | 2024-12-27 13:55 | XMS_ITS | Clinical Summary ---
Author Organization [facility] Address [address] [place] [address] Phone Care Team Providers Care Advertisement Compositor Name Role Phone Ashely Brown Primary Care Provider Medications ibuprofen (ADVIL,MOTRIN) 600 mg tablet Take 1 tablet (600 mg total) by mouth. Active magnesium oxide (MAG-OX) 400 mg magnesium tablet Take 1 tablet (400 mg total) by mouth 1 (one) time each day. Active Hospital, Clinic, or Other Facility Administered Medication Ordered Dose Route Frequency Start Date End Date Status lidocaine (PF) (XYLOCAINE-MPF) 1 % injection 0.5 mLIndications:Planta r fasciitis,Plantar fascial fibromatosis .5 mL inj Once PRN Procedure 12/14/2024 12/14/2024 Ended lidocaine (PF) (XYLOCAINE-MPF) 1 % injection 0.5 mLIndications:Planta r fasciitis,Plantar fascial fibromatosis .5 mL inj Once PRN Procedure 12/14/2024 12/14/2024 Ended triamcinolone acetonide (KENALOG-40) 40 mg/mL injection 20 mgIndications:Planta r fasciitis,Plantar fascial fibromatosis 20 mg IAtc Once PRN Procedure 12/14/2024 12/14/2024 Ended triamcinolone acetonide (KENALOG-40) 40 mg/mL injection 20 mgIndications:Planta r fasciitis,Plantar fascial fibromatosis 20 mg IAtc Once PRN Procedure 12/14/2024 12/14/2024 Ended Encounters Date Type Department Care Team Description 12/14/2024 9:15 AM EDT Office Visit Orthopedic Surgery [facility] [address] [phone] Shiraz Hunt DPM Plantar fascial fibromatosis (Primary Dx); Plantar fasciitis; Equinus contracture of ankle from Last 3 Months Medical History Medical History Date Comments RUQ abdominal pain Major depressive disorder, single episode Positive hepatitis C antibody test Plantar fasciitis Primary hypertension Social History Tobacco Use Types Packs/Day Years Used Date Smoking Tobacco: Never Assessed Comments Unknown Sex and Gender Information Value Date Recorded Sex Assigned at Not on file Legal Sex Female 9:06 AM EST Gender Identity Not on file Sexual Orientation Not on file Obstetrics History Plan of Treatment Upcoming Encounters Date Type Department Care Team (Late st Contact Info) Description 01/30/2025 10:15 AM EDT Office Visit Orthopedic Surgery - [place] [address] [phone] Shiraz Hunt DPM [address] [phone] Health Maintenance Due Date Last Done Comments Hepatitis B Vaccines (1 of 3 - 19+ 3-dose series) 10/22/1987 Cervical Cancer Screening: Pap Smear 1989 Pneumococcal Vaccine: 50+ Years (2 of 2 - PCV) 03/24/2019 03/24/2018 Colorectal Cancer Screening: Colonoscopy 06/07/2022 Social Influencers of Health Screening 06/07/2022 Depression Screening 01/19/2024 01/18/2023 COVID-19 Vaccine ( season) 2024 01/21/2022, 11/05/2020, 10/09/2020 Breast Cancer Screening 02/18/2025 02/19/20 23, 07/25/2021, 07/10/2020 Influenza Vaccine (Season Ended) 2025 08/11/2023, 04/03/2021, 08/15/2020 Hypertension/CHF/CAD Annual BMP Blood Test 07/17/2025 07/17/2024 DTaP,Tdap,and Td Vaccines (2 - Td or Tdap) 03/24/2028 03/24/2018 Cholesterol Screening (Lipid Panel) 07/17/2029 07/17/2024, 08/15/2020, 01/24/2020, Additional history exists HIV Screening Completed 01/10/2018 Pneumococcal Vaccine: Pediatrics (0 to 5 Years) and At-Risk Patients (6 to 64 Years) Aged Out 03/24/2018 No longer eligible based on patient's age to complete this topic Zoster Vaccines Completed 03/07/2022, 06/0 07/2021, 04/03/2021 Hepatitis C Screening Completed 08/11/2023 HIB Vaccines Aged Out No longer eligi [...] 20 months Aged Out No longer eligible based on patient's age to complete this topic Varicella Vaccines Aged Out No longer eligible based on patient's age to complete this topic Procedures Procedure Name Priority Date/Time Associated Diagnosis Comments INJECTION TENDON OR LIGAMENT Routine 12/14/2024 9:15 AM EDT Plantar fasciitis Plantar fascial fibromatosis INJECTION TENDON OR LIGAMENT Routine 12/14/2024 9:15 AM EDT Plantar fasciitis Plantar fascial fibromatosis JONAH SCREENING DIGITAL Routine 02/18/2023 10:07 AM EDT Encounter for screening mammogram for malignant neoplasm of breast from Last 3 Months or Most Recently Relevant to Health Maintenance Results * Injection tendon or ligament (12/14/2024 9:15 AM EDT) Narrative Shiraz Hunt DPM - 12/14/2024 9:15 AM EDT Shiraz Hunt DPM 12/14/2024 12:54 PM Injection tendon or ligament Indications: pain Details: 25 G needle Medications: 0.5 mL lidocaine (PF) 1 %; 20 mg triamcinolone acetonide 40 mg/mL Informed Consent: Site: Foot ligament tendon us Shiraz Hunt DPM IN CLINIC/BEDSIDE ORDERAB LES Final Result * Injection tendon or ligament (12/14/2024 9:15 AM EDT) Shiraz Dumont DPM - 12/14/2024 9:15 AM EDT Shiraz Hunt DPM 12/14/2024 12:54 PM Injection tendon or ligament Indications: pain Details: 25 G needle Medications: 0.5 mL lidocaine (PF) 1 %; 20 mg triamcinolone acetonide 40 mg/mL Informed Consent: Site: Foot ligament tendon us Shiraz Hunt DPM IN CLINIC/BEDSIDE ORDERAB LES Final Result * JONAH SCREENING DIGITAL (02/18/2023 10:07 AM EDT) Anatomical Region Laterality Modality Mammography 02/18/2023 8:48 AM EDT Narrative 02/18/2023 10:07 AM EDT [facility] Diagnostic Imaging Department [address] [place] [address] Patient: LEATHA SEO /Age/Sex: 1970 - 52 - F Unit#: [id number] Location/Status: SPDIMAM/REG CLI Mnemonic/Ordering Site: DIGSC/SPMAM Ordering Physician: JENARO ARREAGA NP Jonah Screening Digital - 02/18/23933 Report Status:Signed EXAM: Jonah Screening Digital EXAM DATE AND TIME: 02/18/2023 9:35 AM HISTORY: Routine screening mammogram COMPARISON: 07/25/2021, 08/01/2021, 07/10/2020 TECHNIQUE: Bilateral digital breast tomosynthesis was performed in the CC and MLO projections. Computer aided detection with [employer] Perzo 3D 3.1 was employed. TISSUE DENSITY: b. There are scattered areas of fibroglandular density. FINDINGS: There is a partially obscured, approximately 8 mm nodule identified superiorly on the right seen best on the medial lateral oblique view. It is probably lateral against the chest wall on the craniocaudad view. This appears to be almost 12 cm deep to the nipple. The patient will need to come back to the department for further spot compression views, as well as an exaggerated craniocaudad view laterally. If persistent ultrasound would be necessary. The left breast is unremarkable. IMPRESSION: 1. Inconclusive [...] Date/Time: 02/18/23 1000 Sign date/Time: 02/18/23 1007 Procedure Note Arturo Jasso MD - 08/10/2023 [facility] Diagnostic Imaging Department [address] [place], [place] [id number] Patient: KAIN SEOPebbles Evans /Age/Sex: 1970 - 52 - F Unit#: [id number] Location/Status: [facility]/REG CLI Mnemonic/Ordering Site: [facility] Ordering Physician: JENARO ARREAGA PIN PUSHER Jonah Screening Digital - 02/18/23 - 0934 Report Status:Signed EXAM: Jonah Screening Digital EXAM DATE AND TIME: 02/18/2023 9:35 AM HISTORY: Routine screening mammogram COMPARISON: 07/25/2021, 08/01/2021, 07/10/2020 TECHNIQUE: Bilateral digital breast tomosynthesis was performed in the CCand MLO projections. Computer aided detection with [employer] 3D 3.1was employed. TISSUE DENSITY: b. There [...] 02/18/23 1000 Sign date/Time: 02/18/23 1007 Silvina rAreaga PARKS RECREATION COORDINATOR IMG BI PROCEDURES Final Re sult from Last 3 Months or Most Recently Relevant to Health Maintenance Insurance MEDICAID - [place] Care Teams Advertisement Compositor Relationship Specialty Start Date End Date Ashely Brown PA [address] [place] [address] PCP - General 07/19/24
== END 2024-12-27 13:03 | disposition home or self-care (01) ==
LOC: HO.HUSH 11:40
PROVIDERS: PCP Physician Assistant; Visit Provider Nurse Practitioner Family
DX: N39.46 Mixed incontinence (principal); Z13.9 Encounter for screening, unspecified
CPT/HCPCS: 99213

== ENCOUNTER 2025-06-26 10:35 | Outpatient (AMB) | payer MEDICAID, SELFPAY ==
--- NOTE | 2025-06-26 10:38 | A.OFFVIS_ITS ---
Intake Visit Reasons: 6m/PVR/UA(SET) Intake Note: Patient is present for 6M/UA/ PVR Urology Medication:MIRABEGRON Antibiotic Allergy:NONE Blood Thinner:NONE Last PVR:73ML'S Todays PVR:0ML'S Bumper Machine Operator Required: No Bumper Machine Operator Services: Bumper Machine Operator Present Bumper Machine Operator Name: Kat [id number] Yuridia Jimenez [id number] Allergies No Known Allergies Allergy (Verified 06/26/25 11:12) Medication List - Last Reconciled 06/26/25 by JOSHUA Weiner lisinopril 10 mg PO DAILY mirabegron ER (Myrbetriq) 25 mg PO DAILY 90 days HPI Comments Details: Leatha is a very pleasant 54-year-old Polish-speaking female patient of Dr. Gregorio was accompanied by her stepdaughter Teressa at today's office visit. She has PMH of plantar fasciitis and depression. She presents to the office today for follow-up of her lower urinary tract symptoms. In discussion with the patient and her stepdaughter today she denies any bothersome urological issues or concerns however stepdaughter is concerned that the patient is becoming more forgetful in his enquiring a referral to Nephrology for further assessment evaluation. She reports compliance with Myrbetriq as prescribed. She reports she has had less episodes of mixed urinary incontinence she had been experiencing. In office urinalysis results reviewed with the patient today. PVR 0 mL. Previous workup has included a retroperitoneal ultrasound 12/27 that noted bilateral kidneys are normal in echotexture. No hydronephrosis or renal calculi noted bilaterally. The bladder is fluid-filled. She reports utilizing less Judi pads. She denies nocturia, hematuria, dysuria, foul smelling urine, changes to urinary stream, flank pain, fever, and or chills. We discussed at length potential causes of mixed urinary incontinence as well as further treatment options and risks and benefits of these treatment options. However, she does feel Myrbetriq has been helpful and wishes to continue. She reports having trialed oxybutynin with her PCP and felt this was somewhat helpful however experienced dry mouth and constipation therefore she stopped taking the medication. All questions were answered. She otherwise offers no other issues or concerns at this time. 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 Positive hepatitis C antibody test Major depressive disorder RUQ abdominal pain Review of Systems Const All systems reviewed & are unremarkable except as noted in HPI and below Physical Exam Const General: cooperative, healthy appearing, comfortable, no acute distress, well developed, alert and awake Orientation/consciousness: oriented to person Limitations: language barrier HEENT Head: Yes normal to inspection, Yes normocephalic and Yes atraumatic Ears: hearing grossly normal bilaterally Eyes General: appearance normal, both eyes and all related structures Neck Neck: Yes normal visual inspection and Yes trachea midline Chest Chest palpation & inspection: normal inspection of the chest Resp Effort & Inspection: normal respiratory effort and able to speak in complete sentences Cardio Rate: regular rate GI Inspection: Yes normal to inspection General: Yes no CVA tenderness Back/Spine/Pelvis Back: no CVA tenderness Skin General skin exam: no rashes or lesions noted Neuro General: oriented to person Extrem General: Yes normal to inspection Psych Appearance: grossly normal and well kempt Mental Status: other Speech and movement: Normal speech and movement present, Clear speech present and Slowed speech present (Psych) Affect: normal affect Attitude: cooperative Insight: Limited insight present (Psych) Judgement: Limited judgement present (Psych) Office Procedures Post Void Residual Post Residual Void Post Void Residual (PVR): 0 [id number] Void Residual by ultrasound Results AMB Urinalysis, Automated UA Leukoctes 0 Ezequiel/uL Last Edit by MONICA León on 06/26/25 11:04 UA Nitrite Negative Last Edit by MONICA León on 06/26/25 11:04 UA Urobilinogen 0.2 mg/dL Last Edit by MONICA León on 06/26/25 11:0 4 UA Protein 30 mg/dL Last Edit by MONICA León on 06/26/25 11:04 UA pH 6.0 Last Edit by MONICA León on 06/26/25 11:04 UA Blood 25 Danny/uL Last Edit by MONICA León on 06/26/25 11:04 UA Specific Fox 1.025 Last Edit by MONICA León on 06/26/25 11: 04 UA Ketone Negative Last Edit by MONICA León on 06/26/25 11:04 UA Bilirubin 0 mg/dL Last Edit by MONICA León on 06/26/25 11:04 UA Glucose 0 mg/dL Last Edit by MONICA León on 06/26/25 11:04 Results Reviewed Results Reviewed: Laboratory Last Values Urine pH (Auto) 6.0 06/26/25 10:42 Specific Fox (Auto) 1.025 06/26/25 10:42 Urine Protein (Auto) 30 mg/dL 06/26/25 10:42 Glucose (UA)(Auto) 0 mg/dL 06/26/25 10:42 Urine Ketones (Auto) Negative 06/26/25 10:42 Urine Blood (Auto) 25 Danny/uL 06/26/25 10:42 Urine Nitrite (Auto) Negative 06/26/25 10:42 Urine Bilirubin (Auto) 0 mg/dL 06/26/25 10:42 Urine Urobilinogen (Auto) 0.2 mg/dL 06/26/25 10:42 Leukocyte Esterase (Auto) 0 Ezequiel/uL 06/26/25 10:42 Assessment & Plan Assessment & Plan (1) Urinary incontinence, mixed: Code(s): N39.46 - Mixed incontinence Category: Medical Plan In office urinalysis results with the patient today; as noted above. PVR 0 mL. Will continue with Myrbetriq as discussed and prescribed. Will refer to neurology for further assessment evaluation. She currently denies any bothersome urinary issues or concerns. She reports be happy with current voiding parameters. All questions were answered. Follow-up in 6 months with PVR; or sooner with any issues, concerns, and or questions. Orders: Orders AMB Urinalysis Automated Today Z13.9 - Encounter for screening, unspecified Urine Cytology Today R31.29 - Other microscopic hematuria Referrals Neurology Referral R68.89 - Other general symptoms and signs Patient Instructions: The patient had an opportunity to ask questions regarding the treatment plan. All questions were answered. Physical exam, labs, and imaging were discussed and reviewed in detail. As well as risks, benefits, and discussion of treatment choices. No major barriers to understanding were identified. The patient expressed understanding and agreement with the above treatment plan. The patient was made aware they should contact our office by phone for worsening of their current condition, the appearance of new symptoms, or with any questions or concerns. Compliance is encouraged with any medications and follow up testing that is ordered. It is a privilege to be allowed the opportunity to participate in? your urological care.? Again, if you have any questions or concerns If you have any questions or concerns please do not hesitate to contact me. The office is [phone]. This note is constructed using voice recognition software. While every effort has been made to ensure accuracy city comptroller errors may have been included. Yours sincerely, JOSHUA Weiner Coding Level of Care Code Est Pt Level 3 (71379) Add On Problem Visit Only Diagnoses Urinary incontinence, mixed N39.46 CPT Codes Post Residual Void - PVR CPT Code: 22931-Prev Void Residual by ultrasound ([id number])
--- OUTSIDE RECORDS SUMMARY | 2025-06-26 11:54 | XMS_ITS | Clinical Summary ---
Author Organization [facility] Address [address] [place] [address] Phone Care Team Providers Care Morning Show Producer Name Role Phone Tamika Berg AMANDA Primary Care Provider [phone] Allergies No known active allergies Medications ibuprofen (ADVIL,MOTRIN) 600 mg tablet Take 1 tablet (600 mg total) by mouth. Active magnesium oxide (MAG-OX) 400 mg magnesium tablet Take 1 tablet (400 mg total) by mouth 1 (one) time each day. Active hydrOXYzine HCL (ATARAX) 25 mg tablet Take 1 tablet (25 mg total) by mouth. 1 to 2 tabs every 8 hours 5 Active aluminum-magnes ium hydroxide-simet hicone (MAALOX MAX) 400-400-40 mg/5 mL suspension Take 5 mL by mouth every 6 hours as needed. 4 Active diclofenac (VOLTAREN) 1 % topical gel Apply topically 4 times daily as needed. 3 Active naproxen (NAPROSYN) 500 mg tablet Take 1 tablet (500 mg total) by mouth 2 (two) times a day with meals. 3 Active olmesartan (BENICAR) 5 mg tablet Take 1 tablet (5 mg total) by mouth daily. 5 Active oxyBUTYnin XL (DITROPAN-XL) 5 mg 24 hr tablet Take 1 tablet (5 mg total) by mouth daily. 4 Active NIFEdipine (bulk) in white petrolatum ointment Apply 1 Application topically 3 (three) times a day. Apply pea-sized amount of 0.2% nifedipine ointment to the perianal region 3 times a day to treat anal fissure 90 g 1 05/03/20 Active senna-docusate (PERICOLACE) 8.6-50 mg per tablet Take 2 tablets by mouth 1 (one) time each day. 60 each 11 05/03/20 Active Encounters Date Type Department Care Team Description 05/10/2025 11:00 AM EST Treatment [address] [phone] Harshad Kim, PT Plantar fascial fibromatosis (Primary Dx); Equinus contracture of ankle; Sciatica, left side 05/04/2025 11:30 AM EDT Treatment [address] [address] Lino Herrera, [employer]ERSON Plantar fascial fibromatosis (Primary Dx); Equinus contracture of ankle 05/03/2025 8:45 AM EDT Consult General Surgery [address] [phone] González De La Torre MD Anal fissure (Primary Dx); Constipation, unspecified constipation type 04/09/2025 12:15 PM EDT Treatment [address] [address] Harshad Kim, PT Plantar fascial fibromatosis (Primary Dx); Equinus contracture of ankle; Sciatica, left side 04/03/2025 12:30 PM EDT Treatment [address] [address] Lino Herrera PTA Plantar fascial fibromatosis (Primary Dx); Equinus contracture of ankle 03/30/2025 12:00 PM EDT Treatment [address] [phone] Lino Herrera, [employer] PERSON Plantar fascial fibromatosis (Primary Dx); Equinus contracture of ankle; Sciatica, left side from Last 3 Months Medical History Medical History Date Comments RUQ abdominal pain Major depressive disorder, single episode Positive hepatitis C antibody test Plantar fasciitis Primary hypertension DM (diabetes mellitus) ([facility]/HCC V24, [facility]/HCC V28 ) HTN (hypertension) Social History Tobacco Use Types Packs/Day Years Used Date Smoking Tobacco: Never Assessed Comments No Sex and Gender Information Value Date Recorded Sex Assigned at Female 03/22/2025 9:01 AM EDT Legal Sex Female 9:06 AM EST Gender Identity Not on file Sexual Orientation Not on file Obstetrics History Para Term AB IAB SAB Ectopic Multiple Livin g Live Births 2 Last Filed Vital Signs Vital Sign Reading Time Taken Comments Blood Pressure 145/84 05/03/2025 8:51 AM EDT Pulse 109 05/03/2025 8:51 AM EDT Temperature 36.8 C (98.2 F) 01/10/2025 8:46 PM EDT Respiratory Rate 16 01/10/2025 8:46 PM EDT Oxygen Saturation 100% 01/10/2025 8:46 PM EDT Inhaled Oxygen Concentration - - Weight 70.9 kg (156 lb 6.4 oz) 05/03/2025 8:51 A M EDT Height 149.9 cm (4' 11 ) 05/03/2025 8:51 AM EDT Body Mass Index 31.59 05/03/2025 8:51 AM EDT Plan of Treatment Upcoming Encounters Date Type Department Care Team (Late st Contact Info) Description 08/06/2025 4:15 PM EST Office Visit General Surgery - [place] [address] [facility] [address] [place] [address] González De La Torre MD [address] [place] [phone] 12/27/2025 2:20 PM EDT Consult Gastroenterology - [address] [place] [address] [address] [place] [phone] Stephanie Pereira PA [address] [facility] [address] [place] [address] Health Maintenance Due Date Last Done Comments Colorectal Cancer Screening: Colonoscopy 1968 Hepatitis B Vaccines (1 of 3 - 19+ 3-dose series) 10/22/1987 Cervical Cancer Screening: Pap Smear 1989 Pneumococcal Vaccine: 50+ Years (2 of 2 - PCV) 03/24/2019 03/24/2018 Social Influencers of Health Screening 06/07/2022 Depression Screening 07/05/2024 COVID-19 Vaccine ( season) 2025 01/21/2022, 11/05/2020, 10/09/2020 Influenza Vaccine (#1) 2025 , 04/03/2021, 08/15/2020 Hypertension/CHF/CAD Annual BMP Blood Test 01/10/2026 01/10/2025, 07/17/2024 Breast Cancer Screening 03/26/2027 03/26/20 25, 02/18/2023, 07/25/2021, Additional history exists DTaP,Tdap,and Td Vaccines (2 - Td or Tdap) 03/24/2028 03/24/2018 Cholesterol Screening (Lipid Panel) 07/17/2029 07/17/2024, 08/15/2020, 01/24/2020, Additional history exists RSV Immunization Adult Patients (1 - 1-dose 75+ series) 10/22/2043 HIV Screening Completed 01/10/2018 Zoster Vaccines Completed 03/07/2022, 06/0 07/2021, 04/03/2021 [...] on patient's age to complete this topic Goals Goal Patient Goal Type Associated Problems Recent Progress Patient-Stated? Author feel better. General Yes Harshad Kim, PT PT STG x 8 visits from [facility] 03/01/2025 General No Harshad Kim PT Note: [x] = goal MET [] = goal NOT MET Foot/ankle pain [x] Pt will improve walking capacity to 25-30 minutes to allow preparing a meal, [] Pt will be able to squat retrieve item from floor without being limited by foot/ankle pain, [] Pt will be able to walk 30 min order to go short shopping trip. [] Pt will improve ankle DF ROM to 8 deg with knee extended Back/sciatica goals [] Pt will be able to sit through a 30-40 min show [] Pt will report average pain level decrease of 2 /10, [] Pt will report 25-50% decrease in radicular Sx. PT LTG x 16 visits from [facility] 03/01/25 General No Harshad Kim, PT Note: [x] = goal MET [] = goal NOT MET [] Pt will be able to walk 60-90 min order to go to store, [] Pt will be able to ambulate in home with trace antalgic gait on [] Pt will be able to negotiate stairs reciprocally consistently [] Pt will be able raw shellfish preparer full meal without having to sit due to pain [] Pt will have no difficulty clearing side of tub [] Pt will wake <3 x/wk due to pain levels Procedures Procedure Name Priority Date/Time Associated Diagnosis Comments MG MAMMO DIGITAL SCREENING W MACO BILAT Routine 03/26/2025 4:30 PM EDT Encounter for screening mammogram for malignant neoplasm of breast COMPREHENSIVE METABOLIC PANEL STAT 01/10/2025 3:57 PM EDT from Last 3 Months or Most Recently Relevant to Health Maintenance Results * MG Mammo Digital Screening w Maco bilat (03/26/2025 4:30 PM EDT) Anatomical Region Laterality Modality Breast Bilateral Mammography 03/26/2025 4:40 PM EDT Impressions 03/26/2025 4:42 PM EDT No evidence of breast malignancy. BI-RADS CATEGORY: 1 - NEGATIVE RECOMMENDATION: Screening bilateral mammogram is recommended in 1 year. Mammo Location: [facility], [address] [place] [address], [id number], . -------- FINAL REPORT -------- Dictated By: Arminda Costa Dictated Date: 03/26/2025 16:40 ET Assigned Physician: Arminda Costa Reviewed and Electronically Signed By: Arminda Costa Signed Date: 03/26/2025 16:42 ET Workstation ID: [id number] Transcribed By: Self Edit Transcribed Date: 03/26/2025 16:40 ET Narrative 03/26/2025 4:42 PM EDT CLINICAL: 54 years old, Female, routine annual exam. COMPARISON: Multiple prior studies dating back to 2020 TECHNIQUE: Bilateral MLO and CC views were obtained digitally with 3-D mammogram (digital breast tomosynthesis). Computer-aided detection was utilized in evaluation of this exam (CAD). FINDINGS: There is no evidence of suspicious mass or architectural distortion. No worrisome calcifications are evident. There has been no significant change from prior exam(s). BREAST DENSITY: B - There are scattered areas of fibroglandular density. Procedure Note Arminda Costa MD - 03/26/2025 CLINICAL: 54 years old, Female, routine annual exam. COMPARISON: Multiple prior studies dating back to 2020 TECHNIQUE: Bilateral MLO and CC views were obtained digitally with 3-Dmammogram (digital breast tomosynthesis). Computer-aided detection wasutilized in evaluation of this exam (CAD). FINDINGS: There is no evidence of suspicious mass or architectural distortion. Noworrisome calcifications are evident. There has been no significantchange from prior exam(s). BREAST DENSITY: B - There are scattered areas of fibroglandular density. IMPRESSION: No evidence of breast malignancy. BI-RADS CATEGORY: 1 - NEGATIVE RECOMMENDATION: Screening bilateral mammogram is recommended in 1 year. Mammo Location: [facility], [address] [place], [place], [address], . -------- FINAL REPORT -------- Dictated By: Arminda Costa Dictated Date: 03/26/2025 16:40 ET Assigned Physician: Arminda Costa Reviewed and Electronically Signed By: Arminda Costa Signed Date: 03/26/2025 16:42 ET Workstation ID: [id number] Transcribed By: Self Edit Transcribed Date: 03/26/2025 16:40 ET Tamika Berg NP IMG BI PROCEDURES Final Result * (ABNORMAL) Comprehensive metabolic panel (01/10/2025 3:57 PM EDT) Sodium 140 133 - 145 mmol/L [facility] Potassium 3.6 3.5 - 5.5 mmol/L LAB CHEMISTRY METHOD 01/10/2025 5:53 PM EDT [facility] Chloride 107 96 - 110 mmol/L LAB CHEMISTRY METHOD 01/10/2025 5:[address] [facility] CO2 29 21 - 32 mmol/L LAB CHEMISTRY METHOD 01/10/2025 5:[address] [facility] Anion Gap 4 3 - 11 LAB CHEMISTRY METHOD 01/10/2025 5:[address] [facility] Glucose 84 70 - 100 mg/dL LAB CHEMISTRY METHOD 01/10/2025 5:[address] [facility] BUN 9 5 - 25 mg/dL LAB CHEMISTRY METHOD 01/10/2025 5:[address] [facility] Creatinine 0.71 0.50 - 1.10 mg/dL LAB CHEMISTRY METHOD 01/10/2025 5:[address] [facility] eGFR 100 >=60 mL/min/1. 73m2 LAB CHEMISTRY METHOD 01/10/2025 5:[address] [facility] Comment:Calculation based on the Chronic Kidney Disease Epidemiology Collaboration (CKD-EPI) equation refit without adjustment for race. BUN/Creatinine Ratio 12.7 LAB CHEMISTRY METHOD 01/10/2025 5:53 PM EDT [facility] Calcium 9.2 8.5 - 10.5 mg/dL LAB CHEMISTRY METHOD 01/10/2025 5:53 PM EDT [facility] AST (SGOT) 19 10 - 42 unit/L LAB CHEMISTRY METHOD 01/10/2025 5:53 PM EDT [facility] ALT (SGPT) 23 10 - 60 unit/L LAB CHEMISTRY METHOD 01/10/2025 5:53 PM EDT [facility] Alkaline Phosphatase 128(H) 42 - 121 unit/L LAB CHEMISTRY METHOD 01/10/2025 5:53 PM EDT [facility] Total Protein 7.3 6.0 - 8.0 g/dL LAB CHEMISTRY METHOD 01/10/2025 5:53 PM EDT [facility] Albumin 3.5 3.2 - 5.0 g/dL LAB CHEMISTRY METHOD 01/10/2025 5:53 PM EDT [facility] Total Bilirubin 0.2 0.0 - 1.4 mg/dL LAB CHEMISTRY METHOD 01/10/2025 5:53 PM EDT [facility] Blood Venous blood specimen / Unknown Venipuncture / Unknown 01/10/2025 3:57 PM EDT 01/10/2025 4:40 PM EDT us Binta Mccabe DO LAB BLOOD ORDERABLES Layne l Result [facility] [address] [place] [address], from Last 3 Months or Most Recently Relevant to Health Maintenance Insurance MEDICAID ADV[employer]AGE GENERIC Care Teams Morning Show Producer Relationship Specialty Start Date End Date Tamika Berg NP [address] [place] [phone] PCP - General Nurse Practitioner 03/12/25
== END 2025-06-26 11:11 | disposition home or self-care (01) ==
LOC: HO.HUSH 10:35
PROVIDERS: PCP Physician Assistant; Visit Provider Nurse Practitioner Family
DX: Z13.9 Encounter for screening, unspecified (principal); N39.46 Mixed incontinence
CPT/HCPCS: 99213

== ENCOUNTER 2025-06-26 10:35 | Outpatient (REF) | payer MEDICAID, SELFPAY | END 2025-06-26 10:36 | disposition home or self-care (01) | LOC: HO.LAB 10:35 | PROVIDERS: PCP Physician Assistant; Visit Provider Nurse Practitioner Family | DX: N39.46 Mixed incontinence (principal); R31.29 Other microscopic hematuria; R68.89 Other general symptoms and signs; Z79.899 Other long term (current) drug therapy | CPT/HCPCS: 51798; 81003; 88112; 99212 ==